=== PATIENT | male | born 1975 | race Caucasian/White ===

== ENCOUNTER 2017-01-29 19:19 | Emergency (ER) | payer BC | END 2017-01-29 22:00 | disposition home or self-care (01) | LOC: ER 19:19 | DX: S06.0X9A Concussion with loss of consciousness of unspecified duration, initial encounter (principal); Z88.1 Allergy status to other antibiotic agents; X58.XXXA Exposure to other specified factors, initial encounter | CPT/HCPCS: 70450; 99284 ==